=== PATIENT | female | born 1970 | race American Indian/Alaskan Native ===

== ENCOUNTER 2016-06-24 05:57 | Inpatient (IN) | payer OTHER ==
--- NOTE | 2016-06-18 11:19 | Anesthesia Consultation ---
Anesthesia Consult and Med Hx Date of service: 06/24/16 - Airway Anesthetic Teeth Evaluation: Bridges ROM Head & Neck: Adequate Mental/Hyoid Distance: Adequate Mallampati Class: Class II Intubation Access Assessment: Probably Good - Pulmonary Exam CTA: Yes - Cardiac Exam Cardiac Exam: RRR - Pre-Operative Health Status ASA Pre-Surgery Classification: ASA3 Proposed Anesthetic Plan: General Nerve Block: TAP - Cardiovascular System Hx Hypertension: Yes (x 6 yrs) - Central Nervous System Hx Psychiatric Problems: No - Gastrointestinal Hx Gastroesophageal Reflux Disease: Yes - Endocrine Hx Hypothyroidism: Yes - Hematic Hx Anemia: Yes - Other Systems Hx Cancer: No
[2016-06-18 11:34] LABS: Basophils % (Auto) 0.5 % (0.0-1.8); Eosinophils % (Auto) 1.8 % (0.0-4.3); Hematocrit 30.8 % (30.3-42.9); Hemoglobin 9.7 gm/dl (10.1-14.3); Mean Corpuscular HGB Conc 31 % (30-34); Mean Corpuscular Hemoglobin 26 pg (28-32); Mean Corpuscular Volume 83 fl (79-97); Platelet Count 254 K/mm3 (140-440); Red Blood Count 3.71 M/mm3 (3.65-5.03); Red Cell Distribution Width 16.5 % (13.2-15.2); White Blood Count 5.6 K/mm3 (4.5-11.0)
[2016-06-18 11:41] LABS: Anion Gap 13 mmol/L; BUN/Creatinine Ratio 11.25; Blood Urea Nitrogen 9 mg/dL (7-17); Calcium 8.9 mg/dL (8.4-10.2); Carbon Dioxide 25 mmol/L (22-30); Chloride 101.9 mmol/L (98-107); Glucose 88 mg/dL (65-100); Potassium 3.4 mmol/L (3.6-5.0); Sodium 136 mmol/L (137-145)
--- NOTE | 2016-06-23 21:41 | History and Physical Report ---
History of Present Illness Date of examination: 06/22/16 Chief complaint: Dysfunctional Uterine Bleeding, Pelvic Pain, Fibroid Uterus History of present illness: Pt is a 46 year old -[place] female who presents for definitive management of an enlarged fibroid uterus, dysfunctional uterine bleeding and pelvic pain. Past History Past Medical History: hypertension, mitral valve prolapse, thyroid disease Past Surgical History: section Family/Genetic History: none Social history: no significant social history Medications and Allergies Allergies Allergy/AdvReac Type Severity Reaction Status Date / Time lisinopril AdvReac cough Verified 06/16/16 09:41 Home Medications Medication Instructions Recorded Confirmed Last Taken Type Butalb/Acetaminophen/Caffeine 1 each PO PRN PRN 06/18/16 06/18/16 Unknown History [Esgic 50-325-40 mg Tablet] Levothyroxine [Synthroid] 25 mcg PO QAM 06/18/16 06/18/16 Unknown History Losartan/Hydrochlorothiazide 1 each PO DAILY 06/18/16 06/18/16 Unknown History [Losartan-Hctz 50-12.5 mg Tab] Omeprazole [Omeprazole] 40 mg PO DAILY 06/18/16 06/18/16 Unknown History Ondansetron [Zofran TAB] 8 mg PO Q8HR PRN 06/18/16 06/18/16 Unknown History Promethazine [Phenergan TAB] 25 mg PO Q6HR PRN 06/18/16 06/18/16 Unknown History Ranitidine HCl [Zantac 300 MG TAB] 300 mg PO DAILY 06/18/16 06/18/16 Unknown History Rizatriptan Benzoate [Rizatriptan] 5 mg PO DAILY 06/18/16 06/18/16 Unknown History Topiramate [Topiramate] 25 mg PO BID 06/18/16 06/18/16 Unknown History Active Meds: Active Medications Celecoxib (Celebrex) 200 mg PO PREOP NR Stop: 06/24/16 23:59 Famotidine (Pepcid) 20 mg PO PREOP NR Stop: 06/24/16 23:59 Gabapentin (Neurontin) 600 mg PO PREOP NR Stop: 06/24/16 23:59 Lactated Ringer's (Lactated Ringers) 1,000 mls @ 100 mls/hr IV DIRECT TE[facility]O Stop: 06/24/16 23:59 Midazolam HCl (Versed) 2 mg IV PREOP NR Stop: 06/24/16 23:59 Review of Systems All systems: negative - Vital Signs Vital signs: Vital Signs Temp Pulse Resp BP 98.4 F 58 L 14 134/74 06/18/16 10:20 06/18/16 10:20 06/18/16 10:20 06/18/16 10:20 Temp Pulse Resp BP Pulse Ox 98.4 F 58 L 14 134/74 06/18/16 10:20 06/18/16 10:20 06/18/16 10:20 06/18/16 10:20 - Physical Exam Breasts: Positive: deferred Cardiovascular: Regular rate Lungs: Positive: Clear to auscultation Abdomen: Positive: soft Genitourinary (Female): Positive: normal external genitalia Uterus: Positive: enlarged (18 wk sized uterus) Extremities: Positive: normal Results Result Diagrams: 06/18/16 10:30 06/18/16 10:30 All other labs normal. Assessment and Plan A: Dysfunctional Uterine Bleeding Pelvic Pain Fibroid Uterus Hypertension Mitral Valve Prolapse Thyroid Dysfunction Obesity Chronic Anemia P: Proceed with total abdominal hysterectomy, bilateral salpingectomy, possible bilateral oophorectomy and other indicated procedures.
[2016-06-24] MEDS ORDERED: SUBLIMAZE IV ONE (06:44)
[2016-06-24] MEDS ORDERED: NACL BACTERIOSTATIC INFILTRATI ONE (06:47)
[2016-06-24] MEDS ORDERED: MARCAINE-EPI 0.25%-1:200,000 INFILTRATI ONE ×2 (06:51→06:52)
[2016-06-24] MEDS ORDERED: XYLOCAINE MPF 2% ONE (06:59)
[2016-06-24] MEDS ORDERED: LACTATED RINGERS 1,000 ML IV SCH ×2 (07:00→12:00)
[2016-06-24] MEDS ORDERED: NEURONTIN PO NR ×2 (07:00→12:00)
[2016-06-24] MEDS ORDERED: VERSED IV NR ×2 (07:00→12:00)
[2016-06-24] MEDS ORDERED: ANCEF/STERILE WATER 2 GM/20 ML 2 GM/20 ML SYRINGE IV SCH (07:00)
[2016-06-24] MEDS ORDERED: PEPCID PO NR ×2 (07:00→12:00)
[2016-06-24] MEDS ORDERED: DIPRIVAN 10 MG/ML IV ONE (07:06)
[2016-06-24] MEDS ORDERED: SUBLIMAZE ONE (07:06)
[2016-06-24] MEDS ORDERED: ZEMURON IV ONE (07:06)
[2016-06-24] MEDS ORDERED: DECADRON ONE (07:43)
[2016-06-24] MEDS ORDERED: NACL 0.9% 100 ML ONE (07:45)
[2016-06-24] MEDS ORDERED: NEO SYNEPHRINE ONE (07:45)
[2016-06-24] MEDS ORDERED: DILAUDID ONE (07:47)
[2016-06-24] MEDS ORDERED: ACD-A 500 ML IV ONE (07:52)
[2016-06-24] MEDS ORDERED: LACTATED RINGERS 1,000 ML ONE (07:55)
[2016-06-24] MEDS ORDERED: ZOFRAN ONE (07:57)
[2016-06-24] MEDS ORDERED: ROBINUL ONE ×2 (07:57)
[2016-06-24] MEDS ORDERED: NEOSTIGMINE ONE (07:57)
[2016-06-24] MEDS ORDERED: ZOFRAN IV PRN (08:29)
[2016-06-24] MEDS ORDERED: NORCO 5/325 PO PRN (08:29)
--- NOTE | 2016-06-24 08:29 | Anesthesia Day of Surgery ---
Anesthesia Day of Surgery - Day of Surgery Patient Examined: Yes Patient H&P Reviewed: Yes Patient is NPO: Yes
[2016-06-24] MEDS ORDERED: NACL 0.9% IR ONE (09:00)
[2016-06-24] MEDS ORDERED: TORADOL ONE (09:29)
--- NOTE | 2016-06-24 09:57 | Admit Criteria Form ---
Admission Criteria Documentation: AMBULATORY SURGERY EXCEPTION CRITERIA Ambulatory Surgery Exception Criteria ( Place 'X' for any and all applicable criteria): Surgery or procedure performed on ambulatory basis may require inpatient stay for[A] ANY ONE of the following(1)(2)(3)(4)(5)(6)(7)(8)(9): [X] I. A preoperative situation, condition, or finding that warrants inpatient stay as indicated by ANY ONE of the following: [] a) Inpatient care needed because of severity of a disease or condition rather than the surgery (eg, severe cardiac or respiratory disease, severe infection) (15) (16 ) (17) (18) [] b) Emergent procedure (eg, angioplasty for acute ischemia)(19) [] c) Complex surgical approach or situation as indicated by ANY ONE of the following(3): [] i) Open approach needed instead of usual endoscopic, transcatheter, or other less invasive procedure [] ii) Difficult approach because of previous operation [] iii) Airway monitoring required after open neck procedures(20)(21) [] iv) Large mass requiring unusually extensive dissection [] v) Additional complicating feature requiring inpatient care (eg, drain management)(22(23): [X] d) Major surgery in a pt with high anesthetic risk as indicated by ANY ONE of the following (2)(3)(5)(7)(8): [X] i) ASA risk class III or higher (severe systemic disease impairing function) [D] [] ii) Advanced age (eg, older than 85 years)(14)(24) [] iii) Symptomatic heart failure(25) [] iv) Symptomatic asthma or COPD(8)(21) [] v) Morbid obesity with hemodynamic or respiratory problems(20)( 21)(26)(27) [] vi) Obstructive sleep apnea(20)(21) [] vii) Former premature infants who are younger than 60 weeks [] viii) High risk for severe postoperative abnormalities (eg, severe postoperative hypocalcemia after parathyroidectomy for severe hyperparathyroidism)(27)( 28) [] ix) Unstable angina(25) [] e) Drug-related risk requiring inpatient stay as indicated by ANY ONE of the following(5)(10)(14)(32)(33) [] i) Procedure requires discontinuing drugs or other therapy (eg , antiarrhythmic medication, antiseizure medication), which necessitates inpatient observation or treatment.(18)(31) [] ii) Major surgery and high risk drug use as indicated by ANY ONE of the following: [] 1) Active abuse of cocaine or similar drug [] 2) Monoamine oxidase inhibitor use [] 3) Other drug identified as posing risk [] f) Inadequate outpatient care situation as indicated by ANY ONE of the following(5)(10)(14)(32)(33) [] i) Patient lives remote from medical facility and procedure has urgent complication potential, and temporary nearby residence cannot be arranged [] ii) Patient will have postprocedure incapacitation and inadequate assistance at home, or alternative level of care cannot be arranged. [] iii) Patient will have long general anesthesia or procedure side effect resolution time, and competent person to stay with patient on first postoperative night at home or alternative level of care cannot be arranged. []iv) Other inadequate outpatient situation that cannot be handled by other means [] II. A perioperative event, condition, or finding that warrants inpatient stay as indicated by ANY ONE of the following (1)(2)(3): [] a) Inadequate physiologic recovery: cardiovascular, respiratory, or hemodynamic status not normal or near preoperative baseline(18) [] b) Hemodynamic instability [] c) Patient not alert with near normal or baseline mental status [] d) Temperature not normal or as expected and not appropriate for outpatient treatment of condition [] e) Ambulatory or appropriate activity level status not yet achieved post procedure [E](34)(35)(36) [] f) Operative site not appropriate (eg, unexpected or excessive drainage or bleeding) [] g) Postoperative effects not resolved or adequately managed (eg, significant pain or vomiting not appropriate for outpatient or next level of care)(10)(12) [] h) Complicating features requiring inpatient care as indicated by ANY ONE of the following(37): [] i) Severe complications of procedure (eg, bowel injury, airway compromise, vascular injury,severe hemorrhage) [] ii) Extensive (eg, dissection far beyond usual scope of procedure ) or prolonged (eg, 120 minutes beyond usual) surgery needed requiring inpatient postoperative care [] iii) Conversion to an open or complex procedure that requires inpatient care (eg, open vs laparoscopic cholecystectomy, abdominal vs vaginal hysterectomy)(38) [] iv) Comorbid condition or test result identified during or post procedure that requires inpatient care (7) [] v) Malignant hyperthermia(30) [] vi) Other complicating feature requiring inpatient care(22)(23) Inpatient stay may be needed until ALL of the following are present (1)(2)(3)(4) (5)(6)(10)(14)(33)(40): []a) Physiologic recovery: cardiovascular, respiratory, and hemodynamic status normal or near preoperative baseline []b) Hemodynamic stability []c) Patient alert, with near normal or baseline mental status []d) Temperature appropriate: patient afebrile or temperature appropriate for outpt treatment of condition []e) Activity level appropriate: ambulatory or appropriate activity level post procedure []f) Operative site appropriate as indicated by ALL of the following: []i) Site dry or with expected drainage []ii) Any blood noted is as expected for procedure. []g) Postoperative effects resolved or managed as indicated by ALL of the following: []i) Pain management appropriate for outpatient (or next level of) care(10) []ii) Minimal nausea and vomiting: if present, successfully treated with oral medication(12) []iii) Headache, dizziness, or drowsiness (if present) are mild. []h) Voiding status acceptable as indicated by ANY ONE of the following: []i) Voiding spontaneously []ii) No voiding but instructions given for follow-up in 6 to 8 hours []iii) Urinary catheter in place, and instructions given for follow-up []i) Complicating features requiring inpatient care manageable at a lower level of care(37) []j) Comorbid conditions manageable at a lower level of care(37) The original [employer] content created by [employer] has been revised. The portions of the content which have been revised are identified through the use of italic text or in bold, and [place] [facility] [employer] has neither reviewed nor approved the modified material. All other unmodified content is copyright [employer]. Please see references footnoted in the original [employer] edition 2016 Admission Criteria Met: Yes
--- NOTE | 2016-06-24 10:07 | Post Operative Note ---
Pre-op diagnosis: 1) Dysfunctional Uterine Bleeding 2) Pelvic Pain 3) Fibroid Uterus Post-op diagnosis: same Findings: 1) 18 wk sized fibroid uterus 2) Normal appearing ovaries and fallopian tubes Procedure: 1) Total Abdominal Hysterectomy 2) Bilateral salpingectomy Anesthesia: DENISA Surgeon: BRIANNA BEAR Down Filler: JOSTIN CABAN Estimated blood loss: other (200 mL) Pathology: list (uterus, cervix, left fallopian tube, right fallopian tube) Specimen disposition: to lab Condition: stable Disposition: PACU
--- NOTE | 2016-06-24 10:07 | Operative Report ---
Operative Report Operative Report: Date of procedure: June 24, 2016 Preoperative diagnosis: 1) Dysfunctional Uterine Bleeding 2) Pelvic Pain 3) Fibroid Uterus Postoperative diagnosis: Same Procedure: Total Abdominal Hysterectomy, Bilateral Salpingectomy Surgeon: Marlen Franklin MD Non Destructive Evaluation Technician: Kathleen Mosqueda MD Anesthesia:GETA Findings: 1) 18 wk sized uterus with multiple uterine fibroids 2) Normal appearing ovaries and tubes EBL: 200 mL IVF: 1400 mL Urine output: 450 mL, clear at the end of the procedure Drains: Reyes to gravity Specimen: Uterus, cervix, bilateral fallopian tubes to pathology Complications: None. Counts correct x 2. Disposition: Stable to PACU Indication for procedure: Pt is a 46 year old -Gren[place] female who presents for definitive treatment of dysfunctional uterine bleeding, chronic pelvic pain and a fibroid uterus. Operation in detail: After the risks, benefits, alternatives and complications were explained to the patient she gave informed consent for the procedure. She was subsequently taken to the operating room with her IV noted to be running well and placed in the dorsal supine position. SCDs were noted to be in place and functioning. General endotracheal anesthesia was induced without difficulty. She was then placed in the dorsal supine position and prepped and draped in a normal sterile fashion. A reyes catheter was inserted and the bladder was emptied. A timeout was performed. A Pfannenstiel skin incision was made with the knife and carried down to the fascia with the Bovie. The fascia was then incised in the midline with the Bovie , and the fascial incision was extended with the Bovie. The anterior edge was then grasped with two Kochers, tented up and dissected off the rectus muscles. The posterior edge was then grasped with two Kochers, tented up, and dissected off the rectus muscles. The rectus muscles were then blunty. The peritoneum was entered sharply after grasping it between two Tila clamps. The peritoneal incision was then stretched with good visualization of the bladder. Intraabdominal survery was completed and noted as above. The patient was then placed in Trendelenberg position. Long Karrie clamps were placed on the utero-ovarian ligaments and fallopian tubes bilaterally. The uterus was then delivered through the incision. The right round ligament was identified, suture ligated with 0-Vicryl and cut with the Bovie. The anterior leaf of the broad ligament was dissected to the midline of the vesico-uterine peritoneum. An avascular window was created, and the right utero-ovarian ligament and fallopian tube were clamped, cut and suture ligated with 0-Vicryl. The same procedure was followed on the left side to transect and suture ligate the left round ligament, fallopian tube and utero- ovarian ligaments. The anterior leaf of the broad ligament on the left side was also dissected to the midline of the vesico-uterine peritoneum. A moist sponge stick was used to move the bladder inferiorly off of the cervix. Next, both uterine arteries were doubly clamped, cut and suture ligated with 0-Vicryl. The uterus was then amputated and handed off the operative field. The cervix was then grasped with Mauri clamp. An O'Donte-O'Cabrera self-retaining retractor was then placed. The cardinal ligaments and utero-sacral ligaments were then sequentially clamped, cut and suture ligated with 0-Vicryl. Sharply curved Zeppelin clamps were then placed at the angles of the vagina. The cervix was then excised and sent to pathology. Brittny stitches were then used to reapproximate the vaginal angles. The remainder of the vaginal cuff was then reapproximated with figure of eights of 0-Vicryl. Hemostasis was noted. The fallopian tubes were then excised and sent to pathology. The remaining pedicles suture ligated with 0-Vicryl. 3-0 Vicryl was used to reapproximate the mesosalpinx on the left side to obtain hemostasis. Hemostasis was noted. The patient was taken out of Trendelenberg position. The abdomen was then irrigated and all pedicles were noted to be hemostatic. Leanne AH was then sprinkled over the pedicles. All retractors, laps and instruments were removed from the peritoneal cavity. The rectus muscles were reapproximated with 2-0 Vicryl in a running fashion. The fascia was then reapproximated with 0-Vicryl in a running fashion. The skin was reapproximated with 4-0 Vicryl in a subcuticular fashion. The incision was then covered with steristrips and a pressure dressing. The procedure was then ended. The pt was then extubated without difficulty and taken to the PACU in stable condition. All instrument, lap and needle counts were correct x 2.
[2016-06-24] MEDS: DILAUDID IV PRN ×3 (10:13→17:43)
--- NOTE | 2016-06-24 10:45 | Post Anesthesia Evaluation ---
- Post Anesthesia Evaluation Patient Participated: Yes Airway Patent: Yes Stable Respiratory Function: Yes Temp > 96.8F: Yes Pain Manageable: Yes Adequeate Hydration: Yes Anesthesia Complications: No Block Receding Appropriately: Not Applicable
[2016-06-24] MEDS ORDERED: PHENERGAN PR PRN (12:57)
[2016-06-24] MEDS ORDERED: ZOFRAN PO PRN (12:57)
[2016-06-24] MEDS ORDERED: NARCAN 0.4 MG/1 ML IV PRN ×2 (12:57)
[2016-06-24] MEDS ORDERED: BENADRYL IV PRN (12:57)
[2016-06-24] MEDS ORDERED: TYLENOL PO PRN (12:57)
[2016-06-24] MEDS ORDERED: MORPHINE PCA 30MG/30ML IV SCH (12:57)
[2016-06-24] MEDS ORDERED: BENADRYL PO PRN (12:57)
[2016-06-24] MEDS: TORADOL IV SCH ×2 (14:25→19:58)
[2016-06-24] MEDS: ANCEF/NS 1 GM/50 ML 1 GM/50 ML BAG IV SCH ×2 (14:38→23:47)
[2016-06-24] MEDS: ZOFRAN IV PRN (14:47)
[2016-06-24] MEDS ORDERED: TORADOL IV SCH (20:00)
[2016-06-24] MEDS: D5W/0.45% NACL/KCL 20 MEQ 20 MEQ/1,000 ML BAG IV SCH (20:54)
--- NOTE | 2016-06-25 09:00 | Progress Note ---
Assessment and Plan A: POD#1 s/p total abdominal hysterectomy, bilateral salpingectomy doing well. Strong family h/o DVT P: Routine postoperative care. Begin Lovenox anticoagulation. Subjective - Subjective Date of service: 06/25/16 Principal diagnosis: s/p abdominal hysterectomy Interval history: Pt is a 46 year old -[place]oc[place] female who presents for definitive management of an enlarged fibroid uterus, dysfunctional uterine bleeding and pelvic pain. Patient reports: appetite normal, pain well controlled, ambulating normally (to bathroom ), no voiding normally (reyes just removed ), no flatus, no bowel movement Objective - Vital Signs Latest vital signs: Vital Signs Temp Pulse Pulse Pulse Resp BP BP 06/24/16 19:58 16 06/24/16 19:00 98.6 F 57 L 149/80 06/24/16 18:45 50 L 06/24/16 16:45 48 L 06/24/16 16:00 97.6 F 50 L 18 148/87 06/24/16 13:00 98.0 F 50 L 16 110/58 06/24/16 11:15 97.6 F 50 L 47 L 18 137/81 06/24/16 10:45 52 L 14 131/78 06/24/16 10:35 12 06/24/16 10:30 53 L 14 128/80 06/24/16 10:25 16 06/24/16 10:15 52 L 18 143/87 06/24/16 10:13 16 06/24/16 10:00 53 L 18 136/85 06/24/16 09:55 51 L 18 151/80 06/24/16 09:51 97.2 F L 18 137/82 Pulse Ox 06/24/16 19:58 06/24/16 19:00 06/24/16 18:45 06/24/16 16:45 06/24/16 16:00 06/24/16 13:00 06/24/16 11:15 06/24/16 10:45 99 06/24/16 10:35 06/24/16 10:30 97 06/24/16 10:25 06/24/16 10:15 97 06/24/16 10:13 06/24/16 10:00 100 06/24/16 09:55 100 06/24/16 09:51 100 Intake and Output 06/24/16 06/25/16 06/25/16 22:59 06:59 14:59 Intake Total 350 600 Balance 350 600 Intake: IV 350 600 ANCEF/NS 1 GM/50 ML 1 gm 50 In 50 ml @ 100 mls/hr IV Q8H [facility] Rx#:[id number] D5W/0.45% NACL/KCL 20 MEQ 300 600 20 meq In 1,000 ml @ 100 mls/hr IV DIRECT [facility] Rx#:[id number] Other: Voiding Method Indwelling Catheter - Exam Breasts: Present: deferred Cardiovascular: Present: Regular rate Lungs: Present: Clear to auscultation Abdomen: Present: soft, abnormal bowel sounds Extremities: Present: normal Incision: Present: dressed
[2016-06-25 09:10] LABS: Hematocrit 27.6 % (30.3-42.9); Hemoglobin 8.5 gm/dl (10.1-14.3)
[2016-06-25 09:32] LABS: Anion Gap 14 mmol/L; Blood Urea Nitrogen 6 mg/dL (7-17); Calcium 8.6 mg/dL (8.4-10.2); Carbon Dioxide 24 mmol/L (22-30); Chloride 105.1 mmol/L (98-107); Glucose 81 mg/dL (65-100); Potassium 3.5 mmol/L (3.6-5.0); Sodium 140 mmol/L (137-145)
[2016-06-25] MEDS: D5W/0.45% NACL/KCL 20 MEQ 20 MEQ/1,000 ML BAG IV SCH (10:25)
[2016-06-25] MEDS: ZOFRAN IV PRN (10:26)
[2016-06-25] MEDS: DILAUDID IV PRN (10:29)
[2016-06-25] MEDS: PROTONIX IV SCH (10:37)
--- NOTE | 2016-06-25 13:22 | Progress Note ---
Subjective Date of service: 06/25/16 Interval history: 1st POD after total vaginal hysterectomy Patient is in the bed, comfortable. Pain is mostly controlled with pain meds. Ambulated well. No nausea or vomiting. No anesthesia complications Objective - Constitutional Vitals: Vital Signs - 12hr 06/25/16 06/25/16 06/25/16 08:05 10:29 12:10 Temperature 99.0 F 98.3 F Pulse Rate [ 52 L 52 L Right Brachial] Respiratory 24 16 24 Rate Blood Pressure 143/76 110/77 [Right Arm] - Labs CBC & Chem 7: 06/25/16 08:11 06/25/16 08:11 Labs: Abnormal lab results 06/25/16 06/25/16 Range/Units 08:11 08:11 Hgb 8.5 L (10.1-14.3) gm/dl Hct 27.6 L (30.3-42.9) % Potassium 3.5 L (3.6-5.0) mmol/L BUN 6 L (7-17) mg/dL
[2016-06-25] MEDS: MILK OF MAGNESIA PO SCH ×3 (13:45→22:07)
[2016-06-25] MEDS: PERCOCET 5/325 PO PRN (17:24)
[2016-06-25] MEDS ORDERED: LOVENOX SUB-Q SCH (22:00)
[2016-06-26] MEDS: PERCOCET 5/325 PO PRN ×2 (02:05→09:55)
[2016-06-26] MEDS: MILK OF MAGNESIA PO SCH ×2 (02:07→05:08)
--- NOTE | 2016-06-26 11:14 | Progress Note ---
Assessment and Plan A: POD#2 s/p total abdominal hysterectomy, bilateral salpingectomy doing well. Strong family h/o DVT P: Discharge home today with follow up in two weeks at the office. Subjective - Subjective Date of service: 06/26/16 Principal diagnosis: s/p abdominal hysterectomy Interval history: No over night events. Pt had three bowel movements yesterday. Denies nausea or vomiting. Patient reports: appetite normal, voiding normally, pain well controlled, flatus , bowel movement, ambulating normally, no nauseated Objective - Vital Signs Latest vital signs: Vital Signs Temp Pulse Pulse Resp Resp BP 06/26/16 09:55 20 06/26/16 08:55 98.0 F 62 18 130/82 06/26/16 05:00 98.6 F 54 L 18 110/66 06/26/16 02:05 18 18 06/26/16 00:35 98.5 F 55 L 20 138/88 06/25/16 20:50 98.7 F 59 L 20 115/69 06/25/16 17:24 20 06/25/16 16:10 99.1 F 58 L 24 140/81 06/25/16 12:10 98.3 F 52 L 24 110/77 Intake and Output 06/25/16 06/26/16 06/26/16 22:59 06:59 14:59 Intake Total 900 100 120 Output Total 1200 350 Balance -300 100 -230 Intake: IV 700 D5W/0.45% NACL/KCL 20 MEQ 700 20 meq In 1,000 ml @ 100 mls/hr IV DIRECT [facility] Rx#:[id number] Oral 150 100 120 Intake, Free Water 50 Output: Urine 1200 350 Uretheral (Grimm) 200 Void 1000 Other: Total, Intake Amount 100 100 Total, Output Amount 500 Voiding Method Toilet Toilet # Voids Indwelling Catheter 1 Void 1 # Bowel Movements 0 1 - Exam Breasts: Present: deferred Cardiovascular: Present: Regular rate Lungs: Present: Clear to auscultation Abdomen: Present: soft, normal bowel sounds Extremities: Present: normal Incision: Present: dressed
--- NOTE | 2016-06-26 11:19 | Discharge Summary ---
Providers - Providers Date of Admission: 06/24/16 05:57 Date of discharge: 06/26/16 Attending physician: BRIANNA BEAR Primary care physician: [employer] Hospitalization Reason for admission: other (hysterectomy ) Procedure details: Total abdominal hysterectoy, bilateral salpingo-oophorectomy; Please see operative note. Incision: intact Discharge diagnosis: other (s/p abdominal hysterectomy ) Hospital course: Patient was admitted for abdominal hysterectomy which she tolerated well. Her postoperative course was uncomplicated and she met discharge criteria on postoperative day #2. She will follow-up in the office within 2 weeks. Condition at discharge: Stable Disposition: DISCHARGED TO HOME OR SELFCARE - Discharge Diagnoses (1) S/P abdominal hysterectomy Status: Acute (2) Dysfunctional uterine bleeding Status: Acute (3) Pelvic pain Status: Acute (4) Fibroid uterus Status: Acute Qualifiers: Uterine leiomyoma location: unspecified location Qualified Code(s): D25.9 - Leiomyoma of uterus, unspecified (5) Chronic nausea Status: Chronic (6) Family history of DVT Status: Acute Plan - Discharge Medications Prescriptions: Docusate Sodium [Colace] 100 mg PO BID PRN #60 capsule PRN Reason: Constipation Enoxaparin [Lovenox] 40 mg SQ QDAY #45 syringe Ferrous Sulfate [Feosol 325 MG tab] 325 mg PO BID #60 tablet Ibuprofen [Motrin] 800 mg PO Q8HR PRN #30 tablet PRN Reason: Pain Ondansetron [Zofran Odt] 4 mg PO Q12H PRN #20 tab.rapdis PRN Reason: Nausea oxyCODONE /ACETAMINOPHEN [Percocet 5/325] 1 tab PO Q6HR PRN #40 tablet PRN Reason: Pain - Provider Discharge Summary Activity: routine, no sex for 6 weeks, no heavy lifting 4 weeks, no strenuous exercise Diet: routine Instructions: routine Additional instructions: [] Smoking cessation referral if applicable(refer to patient education folder for contact #) [] Refer to [facility] Booklet Call your doctor immediately for: * Fever > 100.5 * Heavy vaginal bleeding ( >1 pad per hour) * Severe persistent headache * Shortness of breath * Reddened, hot, painful area to leg or breast * Drainage or odor from incision. * Keep incision clean and dry at all times and follow doctor's instructions regarding bathing/showering - Follow up plan Follow up: PRIMARY CARE, [Primary Care Provider] - 7 Days BRIANNA BEAR MD [Staff Physician] - 07/08/16 (incision check )
[2016-06-26] MEDS: PROTONIX IV SCH (13:40)
[2016-06-26 16:51] VITALS: BP 128/82
== END 2016-06-26 16:20 | disposition home or self-care (01) | DRG 743 ==
LOC: 3A 05:57 → OB 10:48
PROVIDERS: ADMIT Obstetrics & Gynecology; ATTEND Obstetrics & Gynecology
PROC: 0UT90ZZ Resection of Uterus, Open Approach (ICD-10-PCS; principal; 2016-06-24)
PROC: 0UTC0ZZ Resection of Cervix, Open Approach (ICD-10-PCS; 2016-06-24)
PROC: 0UT20ZZ Resection of Bilateral Ovaries, Open Approach (ICD-10-PCS; 2016-06-24)
PROC: 0UT70ZZ Resection of Bilateral Fallopian Tubes, Open Approach (ICD-10-PCS; 2016-06-24)
DX: D25.9 Leiomyoma of uterus, unspecified (principal); N93.8 Other specified abnormal uterine and vaginal bleeding; I10 Essential (primary) hypertension; I34.1 Nonrheumatic mitral (valve) prolapse; E66.9 Obesity, unspecified; D64.9 Anemia, unspecified; E03.9 Hypothyroidism, unspecified; R11.0 Nausea; Z68.31 Body mass index [BMI] 31.0-31.9, adult; Z79.899 Other long term (current) drug therapy
CPT/HCPCS: 36415; 64450; 80048; 84703; 85014; 85018; 85025; 86850; 86900; 86901; 88305; 88307; 93005; 93010; C9113; J0690; J1100; J1170; J1650; J1885; J2250; J2370; J2405; J2704; J2710; J3010; J7120

== ENCOUNTER 2016-08-12 11:13 | Outpatient (CLI) | payer OTHER ==
[2016-08-12 12:35] LABS: Blood Urea Nitrogen 9 mg/dL (7-17)
--- NOTE | 2016-08-12 15:35 | Cat Scan Report ---
CT SCAN OF THE ABDOMEN AND PELVIS WITH CONTRAST: HISTORY: Abdominal pain. TECHNIQUE: Helical CT in 1.25mm intervals following IV contrast. Sagittal and coronal reconstructions. FINDINGS: The liver is normal in size and is without focal defect. Few tiny scattered liver cysts are noted. No gallstones or biliary dilatation are noted. The spleen and pancreas demonstrate a normal size and attenuation with no evidence of abnormal mass. The kidneys are normal in size and position with no evidence of hydronephrosis or mass. 4 mm calyceal stone in the mid right kidney is noted to The adrenal glands are normal. There is no intestinal obstruction or ascites. Normal appendix. The abdominal aorta is normal. Hysterectomy has been performed. The ovaries are unremarkable. There is no evidence of peritoneal air or fluid. There is no evidence of any abnormal masses or fluid collections within the pelvis. No adenopathy is identified. The bladder is normal. IMPRESSION: No acute bowel process. 4 mm right renal calculus, nonobstructing. Hysterectomy. Scattered tiny liver cysts.
== END 2016-08-12 11:14 | disposition home or self-care (01) ==
LOC: CT 11:13
PROVIDERS: ATTEND Internal Medicine Gastroenterology
DX: N20.0 Calculus of kidney (principal); R14.3 Flatulence; R11.2 Nausea with vomiting, unspecified; K76.89 Other specified diseases of liver; Z90.710 Acquired absence of both cervix and uterus
CPT/HCPCS: 36415; 74177; 82565; 84520; Q9967